=== PATIENT | male | born 1945 | race Caucasian/White ===

== ENCOUNTER → 2023-10-25 16:15 | Outpatient (CLI) | payer OTHER, SELFPAY ==
--- NOTE | ~2023-10-25 | XR_ITS ---
EXAMINATION: XR shoulder LT min 2V DATE: 10/25/2023 16:49 INDICATION: Left shoulder pain. TECHNIQUE: 4 views of left shoulder were obtained. COMPARISON: None. FINDINGS: Bone alignment is normal. No fracture. There is severe osteoarthritis of glenohumeral joint and acromioclavicular joint. There is a large hiatal hernia. IMPRESSION: 1. Polyarticular osteoarthritis. Reviewed, dictated and finalized at location E. PAINTER
--- NOTE | ~2023-10-25 | XR_ITS ---
EXAMINATION: XR cervical spine 4-5V DATE: 10/25/2023 16:49 INDICATION: Neck pain. TECHNIQUE: 4 views of cervical spine were obtained. COMPARISON: None. FINDINGS: Bone alignment is normal. Vertebral body heights are normal. There is severely decreased di sc height from C4-C5 through C6-C7. There is multilevel uncovertebral joint osteoarthritis, severe bi laterally at C5-C6 and C6-C7 and on the right at C4-C5. There is multilevel facet joint osteoarthriti s, severe on the left at C3-C4. There is mild central canal stenosis at C4-C5 and C6-C7. No preverteb ral soft tissue swelling. IMPRESSION: 1. Severe cervical spondylosis. Reviewed, dictated and finalized at location E. TIONAL TECHNICAL EDUCATION DIRECTOR
--- NOTE | ~2023-10-25 | XR_ITS ---
EXAMINATION: XR lumbar spine 6V w bending DATE: 10/25/2023 16:48 INDICATION: Dorsalgia, unspecified. TECHNIQUE: 7 views of lumbar spine including standing and flexion and extension views were obtained. COMPARISON: None. FINDINGS: There is 18 degrees dextroscoliosis of lumbar spine. There is 5 mm retrolisthesis of L2 on L3 and L3 on L4. The spine is hypomobile with flexion and extension. Vertebral body heights are fawn l. There is mildly decreased disc height at L1-L2, severely decreased disc height at L2-L3, L3-L4, an d L4-L5, and moderately decreased disc height at L5-S1. There is multilevel facet joint osteoarthriti s, severe in lower lumbar spine. There is a right hip arthroplasty. IMPRESSION: 1. Severe lumbar spondylosis. 2. Lumbar dextroscoliosis. Reviewed, dictated and finalized at location E. HOUSE COORDINATOR
--- NOTE | ~2023-10-25 | XR_ITS ---
EXAMINATION: XR shoulder RT min 2V DATE: 10/25/2023 16:49 INDICATION: Right shoulder pain. TECHNIQUE: 4 views of right shoulder were obtained. COMPARISON: None. FINDINGS: Bone alignment is normal. No fracture. There is severe osteoarthritis of glenohumeral joint and acromioclavicular joint. IMPRESSION: 1. Polyarticular osteoarthritis. Reviewed, dictated and finalized at location E. OENGRAVING ETCHER
== END ==
PROVIDERS: PCP Anesthesiology Pain Medicine; Visit Provider Anesthesiology Pain Medicine
DX: M47.896 Other spondylosis, lumbar region (principal); M47.892 Other spondylosis, cervical region; M19.011 Primary osteoarthritis, right shoulder; M19.012 Primary osteoarthritis, left shoulder
CPT/HCPCS: 72050; 72114; 73030

== ENCOUNTER 2024-01-25 08:07 | Outpatient (CLI) | payer OTHER, SELFPAY ==
--- NOTE | ~2024-01-25 | MR_ITS ---
EXAMINATION: MR lumbar spine wo con DATE: 01/25/2024 08:47 INDICATION: Spinal stenosis, lumbar region with neurogenic claudication. Low back pain. Bilateral leg pain. TECHNIQUE: Magnetic resonance imaging (MRI) of the lumbar spine was performed without intravenous con trast. Sequences included sagittal T2-weighted FSE, sagittal T2-weighted FS FSE, sagittal T1-weighted FSE, and axial T2-weighted FSE. COMPARISON: Lumbar spine radiograph 10/25/2023 FINDINGS: There is 12 degrees dextroscoliosis of lumbar spine. There is 4 mm retrolisthesis of L1 on L2 and L2 on L3 and 5 mm anterolisthesis of L3 on L4 and L5 on S1. There is mild chronic anterior wed ging of T12 and L1 vertebral bodies. There is severely decreased disc height from L1-L2 through L5-S1 with endplate remodeling. The distal spinal cord signal intensity is normal. The conus medullaris is at T12. The following disc levels are specifically discussed: L1-L2: The disc is bulging. There is severe bilateral facet joint osteoarthritis. There is mild bilat eral neural foraminal stenosis. There is mild central canal stenosis. L2-L3: The disc is bulging and has an annular fissure. There is severe right and mild left facet join t osteoarthritis. There is mild right and moderate left neural foraminal stenosis. There is mild cent ral canal stenosis. L3-L4: The disc is bulging. There is severe right and moderate left facet joint osteoarthritis. There is moderate bilateral neural foraminal stenosis. There is mild central canal stenosis. There is mode rate stenosis of right lateral recess. L4-L5: The disc is bulging and has an annular fissure. There is severe right and moderate left facet joint osteoarthritis. There is moderate right and mild left neural foraminal stenosis. There is mild central canal stenosis. L5-S1: The disc is bulging and has an annular fissure. There is severe right and moderate left facet joint osteoarthritis. There is moderate bilateral neural foraminal stenosis. There is mild central ca nal stenosis. IMPRESSION: 1. Severe lumbar spondylosis. 2. Lumbar dextroscoliosis. Reviewed, dictated and finalized at location E. PS ARCHITECT
== END 2024-01-25 08:08 ==
LOC: GOSHIMG 08:07
PROVIDERS: PCP Anesthesiology Pain Medicine; Visit Provider Anesthesiology Pain Medicine
DX: M48.062 Spinal stenosis, lumbar region with neurogenic claudication (principal); M47.896 Other spondylosis, lumbar region
CPT/HCPCS: 72148

== ENCOUNTER 2025-09-17 08:42 | Day surgery (SDC) | payer MEDICARE, SELFPAY ==
[2025-08-30 08:31] VITALS: BMI 30.7
--- NOTE | ~2025-09-17 | XR_ITS ---
EXAMINATION: XR fluoroscopy no charge DATE: 09/17/2025 11:34 INDICATION: Nerve block at the right shoulder TECHNIQUE: 7 fluoroscopic images of the right shoulder were obtained during procedure performed by Dr. Vallejo. Radiologist was not present for the imaging or procedure. The amount of fluoroscopy time used during this procedure was 1.4 minutes. 2 mm radiation dose of 6.69 mGy. COMPARISON: None FINDINGS: Images demonstrate spinal needles advanced to the anterior margin of the rim of the mid and cephalad aspect of the right glenoid, along the lateral margin of the neck of the coracoid process and along the lateral metaphyseal region of the greater tuberosity right humerus inferior to the rotator cuff footplate. Osteoarthritis at the glenohumeral joint with cephalad predominant nonuniform joint space narrowing and moderate size marginal ossified above the humeral head. Additional moderate osteoarthritis at the right acromioclavicular joint. IMPRESSION: 1. Fluoroscopy utilized during pain management procedure at the right shoulder. See procedure note for further detail. Reviewed, dictated and finalized at location A.
--- OUTSIDE RECORDS SUMMARY | 2025-09-17 09:42 | XMS_ITS ---
Author Organization [facility] [address] [facility] Address [address] [place] [facility] [address] Care Team Providers Care Hooker Laster Name Role Phone Andrea Mcelroy MD Primary Care Provider [phone] Rory Mehta MD PhD Unavailable [phone] Ryan Lawler MD Unavailable [phone] Active Problems Patient Care Coordination No te Formatting of this note migh t be different from the original. - Discontinue meloxicam. - Use ibuprofen once daily as needed for joint pains. - Schedule CT of the abdomen and pelvis to complete evaluation of anemia. - Start Nexium 40 mg daily. - Continue follow up with primary care physician office regarding blood testing and need for iron infusions. - Follow up in our GI office in 6 months Problem Noted Date Diagnosed Date Chronic pain of both shoulders 07/04/2025 Assessment & Plan (07/04/2025 9:25 AM CDT): Continue sulfasalazine. Can take p.r.n. Tylenol. Avoid NSAIDs due to hiatal hernia and iron-deficiency anemia. Bilateral impacted cerumen 07/04/2025 Assessment & Plan (07/04/2025 9:25 AM CDT): Canals cleared. RTC for any recurrent concerns. Hiatal hernia 06/24/2025 Assessment & Plan (07/04/2025 9:22 AM CDT): Discussed can be associated with iron-deficiency. Recommend continuing PPI. Avoid meloxicam. Assessment & Plan (06/24/2025 12:07 PM CDT): Large hiatal hernia noted on recent endoscopy in 2022. This can definitely contribute to iron-deficiency anemia because of the strong association. To minimize risk of occult blood loss I asked the patient to stop meloxicam and use ibuprofen once or twice per week as needed. Start Protonix daily. Schedule CT abdomen pelvis without contrast to complete evaluation. Hypertension, essential 04/03/2025 Assessment & Plan (04/03/2025 8:31 AM CDT): Well controlled on current regimen. No changes. Iron deficiency anemia, unspecified 04/03/2025 Assessment & Plan (07/04/2025 9:23 AM CDT): Symptomatically improved after iron infusions. Will recheck iron level and plan accordingly. Medicare annual wellness visit, subsequent 10/04 Assessment & Plan (10/04/2024 8:04 AM LIVE TRUCK OPERATOR): Visit preventive in nature. We reviewed medications, chronic conditions, risk factors, lifestyle recommendations. Reviewed immunization recommendations. Follow-up in 6 months for chronic conditions and 1 year for annual wellness. Prostate cancer 10/04/2024 Assessment & Plan (04/03/2025 8:30 AM CDT): Monitoring with Oncology. Will continue to follow. Assessment & Plan (10/04/2024 7:56 AM LIVE TRUCK OPERATOR): No signs of recurrent disease. He is following twice yearly with Oncology. Anemia 10/04/2024 Assessment & Plan (06/24/2025 12:07 PM CDT): Iron-deficiency anemia noted on blood testing. He received intravenous iron infusion. There was strong association between hiatal hernia and iron-deficiency anemia. No sign of overt or occult GI bleeding. His EGD and colonoscopies from were noted. I do not see a need to pursue endoscopy at this time. Assessment & Plan (04/03/2025 8:30 AM CDT): Chronic anemia with low iron levels. Intolerant to oral iron due to gastrointestinal side effects. No gastrointestinal bleeding. Fatigue likely related to anemia. Possibly due to radiation therapy. Recommend eval with GI as well. - Arrange iron infusions at [facility]. - Refer to sales operations manager for further evaluation. Assessment & Plan (10/04/2024 8:24 AM LIVE TRUCK OPERATOR): Mild. Denies any bleeding. Will check urinalysis, iron profile and ferritin. C scope is up-to-date. Red flags reviewed. Oropharyngeal dysphagia 03/23/2023 History of colonic polyps 03/23/2023 Assessment & Plan (10/04/2024 8:05 AM LIVE TRUCK OPERATOR): C-scope utd. Family history of colon cancer 03/23/2023 Malignant neoplasm of prostate 10/01/2022 Cancer Staging:Clinical stage from 10/01/2022:Stage IIC(cT1c, cN0, cM0, PSA: 7.8, Grade Group: 3) - Signed by Rory Mehta MD PhD on 10/01/2022 Elevated PSA 07/21/2022 Overview (07/21/2022): Added automatically from request for surgery [id number] Primary osteoarthritis involving multiple joints 12/18/2019 Assessment & Plan (04/03/2025 8:31 AM CDT): Chronic arthritis with significant symptoms. Managed with meloxicam. Concerns about side effects. Symptoms may improve with anemia correction. - Continue meloxicam. - Reassess symptoms post iron correction. Assessment & Plan (12/18/2019 10:11 AM LIVE TRUCK OPERATOR): Advised hydrocodone will be discontinue. Should not be used as a chronic p.r.n. medication. He is in agreement follow-up with pain management if needed. Mixed hyperlipidemia 12/18/2019 Assessment & Plan (07/04/2025 9:23 AM CDT): Compliant with simvastatin. Will check lipid panel with next set of labs. Assessment & Plan (10/04/2024 8:03 AM LIVE TRUCK OPERATOR): Stable. Tolerating simvastatin wo SE. Will continue to monitor. Hypothyroidism due to acquired atrophy of thyroi d 12/18/2019 Assessment & Plan (07/04/2025 9:24 AM CDT): Clinically euthyroid. Has been stable on current dose of levothyroxine. Will check TSH with next set of labs. Assessment & Plan (04/03/2025 8:32 AM CDT): Will check TSH with next set of labs. 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 Continue losartan, hydrochlorothiazide, metoprolol. Reviewed lifestyle recommendations. Will continue to monitor. Pure hypercholesterolemia 09/24/2010 Hypothyroidism 09/24/2010 Assessment & Plan (10/04/2024 8:04 AM LIVE TRUCK OPERATOR): Fatigue. S/p CA tx. Will check TSH. Current Treatment and Therapy Plans No current plan information found. Other Current Plans iron sucrose (Venofer) Infusion* Plan Start Date:04/12/2025 Plan Provider:Andrea Mcelroy MD Linked Problems Other iron deficiency anemia Anemia, unspecified type Treatment Medications No medications scheduled. Past Treatment and Therapy Plans Specialty Infusion Treatment Plan Name Start Date Discontinue Date Treatment Medications Discontinue Reason Plan Provider Eligard Injection - 45 mg every 24 weeks 12/02/2023 06/06/2024 leuprolide (ELIGARD) Therapy Complete Rory Mehta MD PhD Eligard Injection - 45 mg every 24 weeks 05/27/2023 05/27/2023 leuprolide (ELIGARD) Therapy Complete Rory Mehta MD PhD Eligard Injection - 45 mg every 24 weeks 10/22/2022 05/18/2023 leuprolide (ELIGARD) Therapy Complete Rory Mehta MD PhD Radiation Treatments (No Episode) * Course C1_Prostate_202112/02/2022 - 02/01/2023 Treatment Period Energy Fraction Dose Fractions Total Dose Plans Planned Replan Boost 01/06/2023 - 02/01/2023 180 19 / 3,420 Replan Pelvis 12/16/2022 - 01/05/2023 180 15 / 2,700 Pelvis 12/02/2022 - 12/15/2022 180 10 / 4,500 Reference Points Delivered DPV_Prost_Boost 01/06/2023 - 02/01/2023 3,420 DPV_Pelvis 12/02/2022 - 01/05/2023 4,500 Lifetime Dose Tracking * Chemical Lifetime Dose Automatic Entry Manual Entr y Fluoro Time 0.183 minutes 0.183 minutes 0 minutes Air kerma at the reference point (Ka,r) 1.94 mGy 1 .94 mGy 0 mGy
--- OUTSIDE RECORDS SUMMARY | 2025-09-17 09:42 | XMS_ITS | Clinical Summary ---
Author Organization [facility] Address [address] [place] [address] Care Team Providers Care Lens Cutter Name Role Phone Félix Arcos MD Primary Care Provider Source Comments [facility],non-owned Affiliates and Associated Physician Practices is amultiple site organization consisting of ambulatory clinics and hospital sitesin [place], [place], [place] and [place]. This disclosure is being madepursuant to the Care Everywhere program and may not contain all information available regarding this patient. Last updated 18.[facility] Allergies No known active allergies Medications * Be aware that medications may not be up to date on this document. Alwaysverify current medications with the patient. simvastatin (ZOCOR) 40 MG tablet Take 40 mg by mouth at bedtime. Active lisinopril-hydr ochlorothiazide (PRINZIDE; ZESTORETIC) 20-12.5 MG tablet Take 1 Tab by mouth daily. Active diclofenac sodium (VOLTAREN) 1 % gel Apply to affected area 4 times daily. Active levothyroxine (SYNTHROID) 150 MCG tablet Take 150 mcg by mouth daily before breakfast. Active predniSONE (DELTASONE) 5 MG tablet Take 1 Tab by mouth daily. 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 Gender Identity Not on file Sexual Orientation Not on file Last Filed Vital Signs Vital Sign Reading Time Taken Comments Blood Pressure 122/84 09/24/2010 1:37 PM CDT Pulse 72 09/24/2010 1:37 PM CDT Temperature 36.7 C (98 F) 09/24/2010 1:37 PM CDT Respiratory Rate - - Oxygen Saturation - - Inhaled Oxygen Concentration - - Weight 89.7 kg (197 lb 12.8 oz) 09/24/2010 1:37 PM CDT Height 172.7 cm (5' 8) 09/24/2010 1:37 PM CDT Body Mass Index 30.08 09/24/2010 1:37 PM CDT Plan of Treatment Health Maintenance Due Date Last Done Comments DTAP/TDAP/TD VACCINES (1 - Tdap) 1963 PNEUMOCOCCAL VACCINE 50+ (1 of 1 - PCV) 1994 ZOSTER VACCINE (1 of 2) 1994 Respiratory Syncytial Virus (RSV) Vaccine Pt: or over 60 yrs (1 - 1-dose 75+ series) 2019 DEPRESSION SCREENING 11/22/2024 COVID-19 VACCINE ( - 2023-2 5 season) 2025 INFLUENZA VACCINE (#1) 2025 HEPATITIS B VACCINE Aged Out No longe r eligible based on patient's age to complete this topic HIB VACCINE Aged Out No longer eligi ble based on patient's age to complete this topic HPV VACCINE Aged Out No longer eligi ble based on patient's age to complete this topic MENINGOCOCCAL (Group B) VACC INE SHARED DECISION-MAKING Aged Out No longer eligibl e based on patient's age to complete this topic MENINGOCOCCAL GROUPS A/C/Y/W VACCINE Aged Out No longer eligible b ased on patient's age to complete this topic Care Teams Lens Cutter Relationship Specialty Start Date End Date Félix Arcos MD [address] [address] PCP - General 09/24/10
--- OUTSIDE RECORDS SUMMARY | 2025-09-17 09:42 | XMS_ITS | Clinical Summary ---
Author Organization [facility] Address [address] [place] [address] Care Team Providers Care Broaching Machine Set Up Operator Name Role Phone Andrea Mcelroy MD Primary Care Provider [phone] Rory Mehta MD PhD Unavailable [phone] Ryan Lawler MD Unavailable [phone] Allergies No known active allergies Medications latanoprost (XALATAN) 0.005 % ophthalmic solutionIndicatio ns:open angle glaucoma Administer 1 drop into the left eye 2 (two) times a day Active ergocalciferol, vitamin D2, (VITAMIN D2 ORAL) Take 1 tablet by mouth every morning Active dorzolamide-timol oL (COSOPT) 22.3-6.8 mg/mL ophthalmic solution Administer 1 drop into the left eye every morning 11/04/20 20 Active hydroCHLOROthiazi de (HYDRODIURIL) 25 mg tabletIndications :Benign hypertension with chronic kidney disease, stage II Take 1 tablet (25 mg total) by mouth daily 90 tablet 3 09/11/20 24 Active simvastatin (ZOCOR) 40 mg tabletIndications :Mixed hyperlipidemia Take 1 tablet (40 mg total) by mouth nightly 90 tablet 3 09/11/20 24 Active losartan (COZAAR) 50 mg tabletIndications :Hypertension, essential TAKE 1 TABLET BY MOUTH EVERY DAY 90 tablet 2 04/12/20 25 Active levothyroxine (SYNTHROID) 112 mcg tabletIndications :Hypothyroidism due to acquired atrophy of thyroid TAKE 1 TABLET BY MOUTH EVERY DAY 100 tablet 1 07/19/[address] (NexIUM) 20 mg capsule Take 2 capsules (40 mg total) by mouth daily before breakfast 180 capsule 3 06/21/20 25 2025 Active sulfaSALAzine (AZULFIDINE) 500 mg tablet Take 1 tablet (500 mg total) by mouth 2 (two) times a day 60 tablet 2 06/26/20 25 Active HYDROcodone-aceta minophen (NORCO) 5-325 mg per tabletIndications :Pain Take 1 tablet by mouth every 6 (six) hours as needed for pain 28 tablet 08/01/20 25 Active metoprolol tartrate (LOPRESSOR) 25 mg immediate release tabletIndications :Benign hypertension with chronic kidney disease, stage II TAKE 1 TABLET (25 MG TOTAL) BY MOUTH DAILY. 90 tablet 3 08/30/20 25 Active sulfaSALAzine EN (AZULFIDINE EN) 500 mg EC tablet Take 1 tablet (500 mg total) by mouth 4 (four) times a day 120 tablet 11 09/11/20 25 2025 Active metoprolol tartrate (LOPRESSOR) 25 mg immediate release tabletIndications :Benign hypertension with chronic kidney disease, stage II TAKE 1 TABLET (25 MG TOTAL) BY MOUTH DAILY. 90 tablet 3 09/14/20 24 2024 Discontinued ibuprofen (ADVIL,MOTRIN) 200 mg tab/cap Take 1 tablet/capsul e (200 mg total) by mouth daily as needed for pain 60 tablet 3 06/21/20 25 2024 sulfaSALAzine EN (AZULFIDINE EN) 500 mg EC tablet Take 1 tablet (500 mg total) by mouth 4 (four) times a day 120 tablet 11 06/27/20 25 2024 Discontinued Active Problems Patient Care Coordination No te [...] 10/04 Assessment & Plan (10/04/2024 8:04 AM CELEBRITY MANAGER): Visit preventive in nature. We reviewed medications, chronic conditions, risk factors, lifestyle recommendations. Reviewed immunization recommendations. Follow-up in 6 months for chronic conditions and 1 year for annual wellness. Prostate cancer 10/04/2024 Assessment & Plan (04/03/2025 8:30 AM CDT): Monitoring with Oncology. Will continue to follow. Assessment & Plan (10/04/2024 7:56 AM CELEBRITY MANAGER): No signs of recurrent disease. He is following twice yearly with Oncology. Anemia 10/04/2024 Assessment & Plan (06/24/2025 12:07 PM CDT): Iron-deficiency anemia noted on blood testing. He received intravenous iron infusion. There was strong association between hiatal hernia and iron-deficiency anemia. No sign of overt or occult GI bleeding. His EGD and colonoscopies from 23 were noted. I do not see a need to pursue endoscopy at this time. Assessment & Plan (04/03/2025 8:30 AM CDT): Chronic anemia with low iron levels. Intolerant to oral iron due to gastrointestinal side effects. No gastrointestinal bleeding. Fatigue likely related to anemia. Possibly due to radiation therapy. Recommend eval with GI as well. - Arrange iron infusions at [facility]. - Refer to tumbling and rolling supervisor for further evaluation. Assessment & Plan (10/04/2024 8:24 AM CELEBRITY MANAGER): Mild. Denies any bleeding. Will check urinalysis, iron profile and ferritin. C scope is up-to-date. Red flags reviewed. Oropharyngeal dysphagia 03/23/2023 History of colonic polyps 03/23/2023 Assessment & Plan (10/04/2024 8:05 AM CELEBRITY MANAGER): C-scope utd. Family history of colon cancer 03/23/2023 Malignant neoplasm of prostate 10/01/2022 Cancer Staging:Clinical stage from 10/01/2022:Stage IIC(cT1c, cN0, cM0, PSA: 7.8, Grade Group: 3) - Signed by Rory Mehta MD PhD on 10/01/2022 Elevated PSA 07/21/2022 Overview (07/21/2022): Added automatically from request for surgery [id number] Primary osteoarthritis involving multiple joints 12/18/2019 Assessment & Plan (04/03/2025 8:31 AM CDT): Chronic arthritis with significant symptoms. Managed with meloxicam. Concerns about side effects. Symptoms may improve with anemia correction. - Continue meloxicam. - Reassess symptoms post iron correction. Assessment & Plan (12/18/2019 10:11 AM CELEBRITY MANAGER): Advised hydrocodone will be discontinue. Should not be used as a chronic p.r.n. medication. He is in agreement follow-up with pain management if needed. Mixed hyperlipidemia 12/18/2019 Assessment & Plan (07/04/2025 9:23 AM CDT): Compliant with simvastatin. Will check lipid panel with next set of labs. Assessment & Plan (10/04/2024 8:03 AM CELEBRITY MANAGER): Stable. Tolerating simvastatin wo SE. Will continue [...] (09/30/2023): Assessment & Plan (10/04/2024 8:24 AM CELEBRITY MANAGER): Normotensive. Continue losartan, hydrochlorothiazide, metoprolol. Reviewed lifestyle recommendations. Will continue to monitor. Pure hypercholesterolemia 09/24/2010 Hypothyroidism 09/24/2010 Assessment & Plan (10/04/2024 8:04 AM CELEBRITY MANAGER): Fatigue. S/p CA tx. Will check TSH. Encounters Date Type Department Care Team Description 08/14/2025 3:15 PM CDT - 08/14/2025 11:59 PM CDT Hospital Encounter [facility] [address] [place] [address] Anemia, unspecified type Discharge Disposition: Discharge to home or self care 08/13/2025 Telephone [facility] [address] [place] [address] Nalepa, Christine D. 07/09/2025 Telephone [facility] [address] [phone] Andrea Mcelroy MD 07/04/2025 8:30 AM CDT Office Visit [facility] [address] [phone] Nguyen Doran NP Hiatal hernia (Primary Dx); Other iron deficiency anemia; Mixed hyperlipidemia; Hypothyroidism due to acquired atrophy of thyroid; Chronic pain of both shoulders; Class 1 obesity due to excess calories with serious comorbidity and body mass index (BMI) of 30.0 to 30.9 in adult; Bilateral impacted cerumen 06/28/2025 1:30 PM CDT Office Visit [facility] [address] [place] [id number] Felicity Wells NP Prostate cancer (HCC) 06/26/2025 Orders Only [facility] [address] [phone] Andrea Mcelroy MD 06/26/2025 Telephone [facility] [address] [phone] Andrea Mcelroy MD 06/21/2025 9:15 AM CDT Office Visit [facility] [place] [address] [place] [id number] Joy Gil MD Hiatal hernia (Primary Dx); Anemia, unspecified type from Last 3 Months Immunizations Immunization Administration Dates Next Due Influenza, Quad, Adjuvantate d, Intramuscular 09/16/2023 Influenza, Quadrivalent, Hig h Dose, Preservative Free, Intrr 09/21/2022,08/15/2021,09/10/2020 Influenza, Quadrivalent, Spl it, Intramuscular 09/11/2019 Influenza, Trivalent, Adjuva nted, Intramuscular 10/11/2018 Influenza, Trivalent, High D ose, Split, Preservative Free, Intramuscular 10/04/2024,09/20/2017 Influenza, Trivalent, Preser vative Free, Intramuscular 09/17/2016 Influenza, Unspecified 09/17/2021(Deferr ed: Patient Refused - pt states already had one),08/22/2021 Pfizer SARS-CoV-2 Monovalent Vaccination (12+ Yrs) PURPLE 01/31/2021,01/10/2021 Pneumococcal Conjugate PCV 13 09/17/2016, 011 Pneumococcal Polysaccharide PPV23 09/20/2017 Tdap 04/01/2011 ZOSTER Recombinant 09/16/2023,05/19/2023 Surgical History Surgery Date Site/Laterality Comments HIP SURGERY 11/22/2013 - 11/21/2014 Right right hip replacement COLONOSCOPY Multiple-- Last 2018 WISDOM TOOTH EXTRACTION 11/22/1961 - 11/21/1962 REPLACEMENT TOTAL KNEE 11/22/2011 - 11/21/2012 Right CATARACT EXTRACTION 11/22/2020 - 11/21/2021 Bilateral FINGER AMPUTATION 11/22/1951 - 11/21/1952 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 FOOT FRACTURE SURGERY 11/22/2006 - 11/21/2007 Left FOOT HARDWARE REMOVAL 11/22/2006 - 11/21/2007 Left FLUORO GUIDED ASPIRATION OR INJECTION LARGE JOINT BILATERAL 12/05/2024 Bilateral Medical History Medical History Date Comments Obesity Hypothyroidism Hypertension Dxd ~1979 Hyperlipidemia Treated with sta tin Prostate cancer (HCC) Arthritis Family History Medical History Relation Name Comments Heart disease Brother taylor reyes Colon cancer Father Anesthesia problems Neg Hx Relation Name Status Comments Brother taylor reyes Father Mother Social History Tobacco Use Types Packs/Day Years Used Date Smoking Tobacco: Former Cigarettes 0 11/22/1961 - 1980 Smokeless Tobacco: Never Tobacco Cessation:Counseling Given: Not Answered Comments:quit in 1980 AUDIT-C Answer Date Recorded Q1: How often do you have a drink containing alc ohol? 2-4 times a month 03/23/2023 Q2: How many drinks containi ng alcohol do you have on a typical day when you are drinking? 1 or 2 03/23/2023 Q3: How often do you have si x or more drinks on one occasion? Never 03/23/2023 PHQ-2 Answer Date Recorded PHQ-2 Total Score (If total score is 3 or more points, staff should administer the PHQ-9) 0 04/03/2025 Personal Safety Answer Date Recorded Have you ever been in or are you currently in a harmful physical or emotional relationship or is someone making you feel afraid or unsafe? Denies 04/01/2023 Sex and Gender Information Value Date Recorded Sex Assigned at Not on file Legal Sex Male 9:39 AM CELEBRITY MANAGER Gender Identity Not on file Sexual Orientation Not on file Obstetrics History Last Filed Vital Signs Vital Sign Reading Time Taken Comments Blood Pressure 140/84 07/04/2025 8:16 AM CDT Pulse 51 07/04/2025 8:16 AM CDT Temperature 36.1 C (96.9 F) 07/04/2025 8:16 AM CDT Respiratory Rate 20 07/04/2025 8:16 AM CDT Oxygen Saturation 97% 07/04/2025 8:16 AM CDT Inhaled Oxygen Concentration - - Weight 91.7 kg (202 lb 3.2 oz) 07/04/2025 8:16 A M CDT Height 172.7 cm (5' 7.99) 07/04/2025 8:16 AM CD T Body Mass Index 30.75 07/04/2025 8:16 AM CDT Plan of Treatment Health Maintenance Due Date Last Done Comments Hepatitis B Screening 1963 DTaP/Tdap/Td Vaccine (2 - Td or Tdap) 04/01/2021 04/01/2011 Covid-19 Vaccine (4 - 2024-2 6 season) 2025 08/15/2021, 01/31/2021, 01/10/2021 Influenza Vaccine (#1) 2025 , 09/16/2023, 09/21/2022, Additional history exists Well Visit 65+ 10/04/2025 10/04/2024, 05/2023, 09/21/2022, Additional history exists Depression Screening 04/03/2026 04/03/2025, 10/04/2024, 2024, Additional history exists Fall Risk Assessment 07/04/2026 07/04/2025, 10/04/2024, 2024, Additional history exists Pneumococcal vaccine 65+ Completed 017, 09/17/2016, 04/01/2011 Zoster Vaccine Completed 09/16/2023, 05/19/2023 Abdominal Aortic Aneurysm (A AA) Screen Completed 08/14/2025 Procedures Procedure Name Priority Date/Time Associated Diagnosis Comments CT ABDOMEN PELVIS WO CONTRAST Schedule Routine, Read Routine (OP Routine) 08/14/2025 4:20 PM CDT Anemia, unspecified type DE REMOVAL IMPACTED CERUMEN INSTRUMENTATION UNILAT Routine 07/04/2025 8:30 AM CDT Bilateral impacted cerumen from Last 3 Months Results * CT Abdomen Pelvis WO Contrast (08/14/2025 4:20 PM CDT) Anatomical Region Laterality Modality Body N/A Computed Tomogra phy 08/15/2025 8:51 AM CDT Narrative 08/15/2025 8:53 AM CDT EXAM DESCRIPTION: CT ABDOMEN PELVIS WO CONTRAST REASON FOR STUDY: iron defieicncy anemia Fatigue Anemia Get blood draw every 6 months Hx of prostate cancer 3 years ago and radiation treatments No surgeries TECHNIQUE: CT scan of the abdomen and pelvis performed without intravenous and without oral contrast using helical scanning technique. Reconstructed coronal and sagittal MPR images reviewed. All images stored on PACS. Automated exposure control was used as a dose optimization technique for this examination. COMPARISON: None FINDINGS: The sensitivity for detection of visceral lesions is diminished without the use of intravenous contrast. LOWER CHEST: Large hiatal hernia. Coronary artery calcifications. LIVER: Normal length. GALLBLADDER: No radiodense gallstones. SPLEEN: Normal length. PANCREAS: No peripancreatic inflammation or fluid collection. ADRENALS: No adrenal mass. KIDNEYS/URINARY TRACT: No hydronephrosis. No urolithiasis. GI: No bowel obstruction. Normal appendix. Colonic diverticula without acute diverticulitis. PERITONEUM: No ascites or free air. VASCULATURE: Vascular calcifications. No abdominal aortic aneurysm. MUSCULOSKELETAL: Right hip arthroplasty hardware. Multilevel lumbar spondylosis. Mild left hip osteoarthritis and chondrocalcinosis. OTHER: Fat containing paraumbilical hernia. IMPRESSION: 1. No acute findings. 2. Large hiatal hernia. 3. Colonic diverticulosis. 4. Additional findings as above. THIS IS AN ELECTRONICALLY VERIFIED FINAL REPORT 08/15/2025 8:53 AM - Electronically signed by Jt Peters M.D., JR: Report ID: [id number] Reading Location: [id number] Procedure Note Jt Peters MD - 08/15/2025 EXAM DESCRIPTION: CT ABDOMEN PELVIS WO CONTRAST REASON FOR STUDY: iron defieicncy anemia Fatigue Anemia Get blood draw every 6 months Hx of prostate cancer 3years ago and radiation treatments No surgeries TECHNIQUE: CT scan of the abdomen and pelvis performed without intravenousand without oral contrast using helical scanning technique. Reconstructed coronal and sagittal MPR images reviewed. All images stored on PACS. Automated exposure control was used as a dose optimization technique forthis examination. COMPARISON: None FINDINGS: The sensitivity for detection of visceral lesions is diminished withoutthe use of intravenous contrast. LOWER CHEST: Large hiatal hernia. Coronary artery calcifications. LIVER: Normal length. GALLBLADDER: No radiodense gallstones. SPLEEN: Normal length. PANCREAS: No peripancreatic inflammation or fluid collection. ADRENALS: No adrenal mass. KIDNEYS/URINARY TRACT: No hydronephrosis. No urolithiasis. GI: No bowel obstruction. Normal appendix. Colonic diverticulawithout acute diverticulitis. PERITONEUM: No ascites or free air. VASCULATURE: Vascular calcifications. No abdominal aortic aneurysm. MUSCULOSKELETAL: Right hip arthroplasty hardware. Multilevel lumbar spondylosis. Mild left hip osteoarthritis and chondrocalcinosis. OTHER: Fat containing paraumbilical hernia. IMPRESSION: 1. No acute findings. 2. Large hiatal hernia. 3. Colonic diverticulosis. 4. Additional findings as above. THIS IS AN ELECTRONICALLY VERIFIED FINAL REPORT 08/15/2025 8:53 AM - Electronically signed by Jt Peters M.D. JR: Report ID: [id number] Reading Location: [id number] us Joy Gil MD IMG CT PROCEDURES Final Re sult * DE REMOVAL IMPACTED CERUMEN INSTRUMENTATION UNILAT (07/04/2025 8:30 AM CDT) Narrative Andrea Mcelroy MD - 07/04/2025 8:30 AM CDT Andrea Mcelroy MD 07/20/2025 7:48 AM Ear Cerumen Removal Performed by: Nguyen Doran NP Authorized by: Nguyen Doran NP Consent Given by: Patient Verbal consent obtained: Yes Location: Bilateral L ear cerumen impacted?: Yes L ear method of removal: Instrumentation and irrigation L ear instrumentation: Curette L ear magnification: Otoscope R ear cerumen impacted?: Yes R ear method of removal: Instrumentation and irrigation R ear instrumentation: Curette R ear magnification: Otoscope Inspection: TM intact Patient tolerance: Patient tolerated the procedure well with no immediate complications us Nguyen Doran QUALITY IMPROVEMENT MANAGER IN CLINIC/BEDSIDE ORDERABL ES Final Result from Last 3 Months Insurance [facility] MEDICARE [facility] Address: [facility] [address] [place] [address] [facility] MEDICARE [facility] Address: [facility] [address] [place] [address] Advance Directives For more information, please contact: [phone] * Full Code (Latest Code Status on File) Date Activated Date Inactivated Comments 04/01/2023 7:33 AM 04/01/2023 1:46 PM * Full Code Date Activated Date Inactivated Comments 04/01/2023 7:33 AM 04/01/2023 7:33 AM Care Teams Broaching Machine Set Up Operator Relationship Specialty Start Date End Date Andrea Mcelroy MD [address] [place] [id number] PCP - General Family Medicine 10/24/19 Rory Mehta MD PhD [address] [place] [address] Radiation Oncologist Radiation Oncology 10/01/22 Ryan Lawler MD [address] [place] [address] Referring Physician Urology 10/01/22
[2025-09-17 09:43] VITALS: BP 170/96; PULSE 58; RESP 18; TEMP 36.7; O2SAT 98
--- NOTE | 2025-09-17 10:20 | WPDHPUPDATE1 ---
History and Physical Update Update Date/Time: 09/17/25 10:20 History and Physical has been reviewed, including an updated exam of the patient. There are NO changes in the patient's condition. Risks, benefits, and alternatives have been discussed and questions answered. Patient agrees to proceed with procedure.
--- NOTE | 2025-09-17 10:21 | P.OP_ITS ---
Procedure Note - Detailed Date of Procedure 09/17/25 Pre-op Diagnosis Primary Osteoarthritis RT Shoulder, chronic right shoulder pain Post-op Diagnosis Same Procedure Performed Diagnostic and Prognostic Blockade of the right Suprascapular, Axillary, Lateral Pectoral and Superior Subscapularis Peripheral Sensory Nerves under Fluoroscopic Guidance (4 nerves blocked). Surgeon Olivier Vallejo MD Anesthesia Local Description of Procedure INFORMED CONSENT: Risks, benefits and alternatives to the procedure were discussed in detail with the patient who expressed explicit understanding and consent to proceed. Patient was informed verbally and in written form regarding the risks associated with the procedure including the low risk of serious local or systemic infection with need for additional surgical intervention, bleeding/bruising, allergic reaction, side-effects or toxicity from injectable medications, nerve injury, paralysis/weakness, procedural site pain or discomfort, worsening pain and/or mobility, failure to treat pain, disfigurement, seizure, arrhythmia, coma and/or . The patient expressed explicit understanding and consent to proceed. All materials required for the procedure were available prior to procedure start. Site and side were marked prior to procedure and verbally confirmed with the patient. PROCEDURE IN DETAIL: The patient was brought to the procedural suite and placed in the prone position with the arm in the neutral, adducted position. Patient was made comfortable with use of pillows under the head, chest, hips and ankles. Skin overlying the posterior, medial and lateral surface of the shoulder joint on the right side was prepared broadly with ChloraPrep applicator and draped in a sterile manner. Aseptic technique was utilized throughout. The shoulder joint of interest was visualized in the AP view with slight caudal tilt and ipsilateral oblique angulation to optimize view of the glenohumeral joint. Local anesthesia was established by infiltration with approximately 3 mL of 2% lidocaine via a 1-1/2 inch 27-gauge needle at the skin and soft tissues overlying each intended injection site. A 25-gauge 3.5 inch quincke spinal needle was advanced until the needle tip contacted periosteum at the upper 1/3 of the glenoid fossa medial to the joint space to approximate the position of the sensory branches of the suprascapular nerve. An additional needle was placed in a similar manner at the middle third of the greater trochanter of the humerus, lateral to the humeral head, on the ipsilateral side to approximate the position of the sensory branches of the axillary nerve. After negative aspiration for blood or bodily fluid, 0.25ml of Omnipaque 300 contrast medium was injected at each site confirming appropriate spread of contrast without evidence of intravascular or intra-articular placement. After repeat negative a spiration, 0.5 ml of 0.5% PF Bupivacaine was injected at each site to block the respective nerves. Needle was removed completely intact without difficulty. Patient was then transitioned to the supine position. Site was prepared and draped sterilely as above. The glenohumeral joint was visualized in the AP orientation using slight cephalad tilt and contralateral oblique angulation to optimize visualization of the glenohumeral joint space and coracoid process. In a similar manner as above, two needles were placed to periosteum, one at the superior third of the glenoid fossa medial to the joint capsule to approximate the sensory branches of the superior subscapularis nerve and one at the middle third or neck of the coracoid process to approximate the sensory branches of the lateral pectoral nerve. Once placement was confirmed, each anterior nerve was blocked in a similar manner as above. Images were saved and documented in the patient chart. Patient's skin was cleansed and sterile bandage applied. The patient tolerated the procedure well. The patient was transported to the recovery area in stable condition where they were observed for an appropriate amount of time prior to discharge, without evidence of complication. Patient was instructed on the appropriate completion of a pain diary over the next 6-12 hours. The patient was instructed to avoid excessive activity for the next 48 hours, including heavy lifting, pushing, pulling, or carrying over 5 lbs, or any overhead work with gradual return to normal activity as tolerated. Showers only for 48 hours. Apply a cool pack using skin protection principles intermittently for 48 hours as needed. They were instructed not to drive or operate heavy machinery for 24 hours. They are to monitor for severe headaches, fevers, chills, night sweats, erythema/swelling at the site or any other signs of infection, bleeding/bruising, bowel, or bladder changes as well as new pain, weakness or numbness in the upper or lower extremity. Should they notice these changes, they are instructed to call our office immediately or report directly to the nearest Emergency Department if no answer or if after posted office hours. COMPLICATIONS: None. COMMENTS: None. CONTRAST WASTED: 29 mL Omnipaque 300. Complications No immediate complications Condition Stable Disposition Same day [facility] Billing Surgery - Charge Forward: Surgery Billing
[2025-09-17 10:33] VITALS: BP 139/63; PULSE 63; RESP 19; O2SAT 91
[2025-09-17 10:36] VITALS: BP 131/63; PULSE 66; RESP 19; O2SAT 91
[2025-09-17] MEDS: BUPivacaine HCL 0.5% 10 ML AMP 5 ML INFILTRATE (10:36)
[2025-09-17] MEDS: LIDOCAINE 1% PF INJ 5 ML VIAL INFILTRATE (10:37)
[2025-09-17 10:42] VITALS: BP 138/66; PULSE 67; RESP 15; O2SAT 92
[2025-09-17 10:51] VITALS: BP 151/82; PULSE 60; RESP 16; O2SAT 98
== END 2025-09-17 10:58 | disposition home or self-care (01) ==
PROVIDERS: PCP Family Medicine; Visit Provider Anesthesiology Pain Medicine
PROC: (CPT 64417; principal; 2025-09-17 10:10)
DX: M19.011 Primary osteoarthritis, right shoulder (principal); M25.511 Pain in right shoulder; G89.29 Other chronic pain
CPT/HCPCS: 64417; 64418 ×2; 64450; 99199

== ENCOUNTER 2025-10-09 10:57 | Day surgery (SDC) | payer MEDICARE, SELFPAY ==
[2025-10-08 07:53] VITALS: BMI 31.1
--- NOTE | ~2025-10-09 | XR_ITS ---
EXAM/PROCEDURE: XR fluoroscopy no charge HISTORY: DIAG/PROG RIGHT SHOULDER NERVE BLK COMPARISON: None available. Fluoroscopy time: 123.1 seconds Dose: 6.65 mgy IMPRESSION: Fluoroscopic guidance for pain management. No radiologist present for this procedure. See procedure/operative notes for complete evaluation. Reviewed, dictated and finalized at location A. ER PEELER IMPRESSION: Fluoroscopic guidance for pain management. No radiologist present for this proc edure. See procedure/operative notes for complete evaluation.
--- NOTE | 2025-10-09 13:11 | WPDHPUPDATE1 ---
History and Physical Update Update Date/Time: 10/09/25 13:11 History and Physical has been reviewed, including an updated exam of the patient. There are NO changes in the patient's condition. Risks, benefits, and alternatives have been discussed and questions answered. Patient agrees to proceed with procedure.
--- NOTE | 2025-10-09 13:11 | W.PM.PROC2 ---
Procedure Note - Detailed Date of Procedure 10/09/25 Pre-op Diagnosis RT. Shoulder Pain and Primary Osteoarthritis Post-op Diagnosis Same Procedure Performed Diagnostic and Prognostic Blockade of the right Suprascapular, Axillary, Lateral Pectoral and Superior Subscapularis Peripheral Sensory Nerves under Fluoroscopic Guidance (4 nerves blocked). Surgeon Olivier Vallejo MD Anesthesia Local Description of Procedure INFORMED CONSENT: Risks, benefits and alternatives to the procedure were discussed in detail with the patient who expressed explicit understanding and consent to proceed. Patient was informed verbally and in written form regarding the risks associated with the procedure including the low risk of serious local or systemic infection with need for additional surgical intervention, bleeding/bruising, allergic reaction, side-effects or toxicity from injectable medications, nerve injury, paralysis/weakness, procedural site pain or discomfort, worsening pain and/or mobility, failure to treat pain, disfigurement, seizure, arrhythmia, coma and/or . The patient expressed explicit understanding and consent to proceed. All materials required for the procedure were available prior to procedure start. Site and side were marked prior to procedure and verbally confirmed with the patient. PROCEDURE IN DETAIL: The patient was brought to the procedural suite and placed in the left lateral decubitus position with the right arm in the neutral, adducted position. Patient was made comfortable with use of pillows under the head and in between the knees. Skin overlying the posterior, medial and lateral surface of the shoulder joint on the right side was prepared broadly with ChloraPrep applicator and draped in a sterile manner. Aseptic technique was utilized throughout. The shoulder joint of interest was visualized in the relative AP view with slight caudal tilt and ipsilateral oblique angulation to optimize view of the glenohumeral joint. Local anesthesia was established by infiltration with approximately 3 mL of 2% lidocaine via a 1-1/2 inch 27-gauge needle at the skin and soft tissues overlying each intended injection site. A 25-gauge 3.5 inch quincke spinal needle was advanced until the needle tip contacted periosteum at the upper 1/3 of the glenoid fossa medial to the joint space to approximate the position of the sensory branches of the suprascapular nerve. An additional needle was placed in a similar manner at the middle third of the greater trochanter of the humerus, lateral to the humeral head, on the ipsilateral side to approximate the position of the sensory branches of the axillary nerve. After negative aspiration for blood or bodily fluid, 0.25ml of Omnipaque 300 contrast medium was injected at each site confirming appropriate spread of contrast without evidence of intravascular or intra-articular placement. After repeat negative aspiration, 0.5 ml of 2.0% PF lidocaine was injected at each site to block the respective nerves. Needle was removed completely intact without difficulty. Attention was then turned to the anterior shoulder. The glenohumeral joint was visualized in the AP orientation using slight cephalad tilt and contralateral oblique angulation to optimize visualization of the glenohumeral joint space and coracoid process. In a similar manner as above, two needles were placed to periosteum, one at the superior third of the glenoid fossa medial to the joint capsule to approximate the sensory branches of the superior subscapularis nerve and one at the middle third or neck of the coracoid process to approximate the sensory branches of the lateral pectoral nerve. Once placement was confirmed, each anterior nerve was blocked in a similar manner as above. Images were saved and documented in the patient chart. Patient's skin was cleansed and sterile bandage applied. The patient tolerated the procedure well. The patient was transported to the recovery area in stable condition where they were observed for an appropriate amount of time prior to discharge, without evidence of complication. Patient was instructed on the appropriate completion of a pain diary over the next 6-12 hours. The patient was instructed to avoid excessive activity for the next 48 hours, including heavy lifting, pushing, pulling, or carrying over 5 lbs, or any overhead work with gradual return to normal activity as tolerated. Showers only for 48 hours. Apply a cool pack using skin protection principles intermittently for 48 hours as needed. They were instructed not to drive or operate heavy machinery for 24 hours. They are to monitor for severe headaches, fevers, chills, night sweats, erythema/swelling at the site or any other signs of infection, bleeding/bruising, bowel, or bladder changes as well as new pain, weakness or numbness in the upper or lower extremity. Should they notice these changes, they are instructed to call our office immediately or report directly to the nearest Emergency Department if no answer or if after posted office hours. COMPLICATIONS: None. COMMENTS: None. CONTRAST WASTED: 29 mL Omnipaque 300. Complications No immediate complications Condition Stable Disposition Same day [facility] Billing Surgery - Charge Forward: Surgery Billing
[2025-10-09 13:21] VITALS: BP 159/98; PULSE 54; RESP 18; TEMP 36.4; O2SAT 100; BMI 31.7
[2025-10-09 13:39] VITALS: BP 149/70; PULSE 62; RESP 16; O2SAT 95
[2025-10-09] MEDS: LIDOCAINE 2% PF LOCAL INJ 5 ML VIAL INFILTRATE (13:43)
[2025-10-09] MEDS: LIDOCAINE 1% PF INJ 5 ML VIAL INFILTRATE (13:43)
[2025-10-09 13:48] VITALS: BP 157/58; PULSE 63; RESP 15; O2SAT 95
[2025-10-09 13:52] VITALS: BP 145/67; PULSE 64; RESP 12; O2SAT 96
[2025-10-09 14:01] VITALS: BP 176/85; PULSE 64; RESP 18; O2SAT 100
== END 2025-10-09 14:13 | disposition home or self-care (01) ==
PROVIDERS: PCP Family Medicine; Visit Provider Anesthesiology Pain Medicine
PROC: (CPT 64418; principal; 2025-10-09 12:10)
DX: M25.511 Pain in right shoulder (principal); M19.011 Primary osteoarthritis, right shoulder
CPT/HCPCS: 64418; 64417; 64450; 64999; 99199

== ENCOUNTER 2025-10-30 08:45 | Day surgery (SDC) | payer MEDICARE, SELFPAY ==
--- NOTE | ~2025-10-30 | XR_ITS ---
EXAM/PROCEDURE: XR fluoroscopy no charge HISTORY: WATER COOLED THERMAL RF ABLATION RIGHT SHOULDER COMPARISON: None available. TECHNIQUE: Fluoroscopic spot images for fluoroscopic guided procedure. Fluoroscopy time: 221.3 seconds Dose: 23.43 mGy IMPRESSION: Fluoroscopic guided imaging. No radiologist present. See also procedure/operative notes for complete evaluation. Reviewed, dictated and finalized at location A. [facility] OPERATOR IMPRESSION: Fluoroscopic guided imaging. No radiologist present. See also proce dure/operative notes for complete evaluation.
[2025-10-30 09:54] VITALS: BP 153/91; PULSE 68; RESP 16; TEMP 36.6; O2SAT 98
[2025-10-30] MEDS: LACTATED RINGERS 1,000 ML 30 ML IV CONT (09:57)
--- NOTE | 2025-10-30 10:02 | WPDANESEPPF ---
Anes - Initial Pre Proc Eval Procedure: Operation Date: 10/30/25 10:35 Proposed Procedures p Water Cooled Thermal Radiofrequency Ablation Right Suprascapular, Axillary, Lateral Pectoral and Subscapular Nerves Addressing Right Shoulder Joint under Fluoroscopic Guidance with Contrast Control - Olivier Vallejo MD Date/Time: 10/30/25 10:02 Surgeon: Olivier Vallejo MD Pre Op Diagnosis: RT Shoulder Pain and Osteoarthritis Patient Data Age: 80 Gender: M Height: 1.73 m Weight: 95.3 kg Last Vital Signs Temp 36.6 C 10/30/25 09:54 Pulse 68 10/30/25 09:54 Resp 16 10/30/25 09:54 BP 153/91 H 10/30/25 09:54 Pulse Ox 98 10/30/25 09:54 O2 Del Method Room Air 10/30/25 09:54 Allergies Allergy/AdvReac Type Severity Reaction Status Date / Time No Known Allergies Allergy Verified 10/30/25 09:52 Home Medications ?Medication ?Instructions ?Recorded ?Confirmed ?Type levothyroxine 112 mcg tablet 112 mcg PO DAILY #90 tabs 11/01/19 10/30/25 Rx hydrochlorothiazide 25 mg tablet 25 mg PO DAILY 10/25/23 10/30/25 History losartan 50 mg tablet 50 mg PO DAILY 10/25/23 10/30/25 History metoprolol tartrate 25 mg tablet 25 mg PO DAILY 10/25/23 10/30/25 History misoprostol 200 mcg tablet 200 mcg PO TID 10/25/23 10/30/25 History simvastatin 40 mg tablet 40 mg PO DAILY 10/25/23 10/30/25 History hydrocodone 5 mg-acetaminophen 325 1 tablet PO Q6H PRN pain 05/08/25 10/30/25 History mg tablet dorzolamide 22.3 mg-timolol 6.8 1 drp LEFT EYE BID 08/30/25 10/30/25 History mg/mL eye drops latanoprost 0.005 % eye drops 1 drp LEFT EYE QPM 08/30/25 10/30/25 History meloxicam 15 mg tablet 15 mg PO DAILY #30 tabs 10/17/25 10/30/25 Rx Patient hx anesthesia problems: none Family hx anesthesia problems: none Results Review: All pre-operative results and documents have been reviewed as part of the pre-operative evaluation. PMFSH Past Medical History Medical History Prostate cancer Surgical History Surgical History History of knee replacement right History of right hip replacement Family History Family History Father Carcinoma of colon Social History Social History Smoking status: Former smoker Tobacco type: cigarettes Second hand tobacco smoke exposure: Yes Smoking end date: 11/22/80 Alcohol intake: current Substance use: never Substance use type: does not use Lack of Transportation: No Lack of Food: Sometimes True Current Housing: I Have Housing Concerned About Future Housing: No Difficulty Paying Gas/Electric Bills: No Difficulty Paying for Meds: No Currently Unemployed: No Difficulty w/ Childcare or Family Care: No Living arrangements: alone Spiritual care concerns: No Anes - Eval Final PreProcedure Day of Procedure 10/30/25 10:02 Patient weight: obese Heart: regular rate and rhythm Lungs: clear to auscultation Airway: Mallampati scale class III Neurological: alert and oriented Last oral intake: >/= 8 hours ASA classification: III Anesthetic plan: proceed Anesthesia type and monitoring: monitored anesthesia care Results Review: All pre-operative results and documents have been reviewed as part of the pre-operative evaluation. Informed Consent: The patient's anesthetic plan and its attendant risks and benefits were discussed with the patient/family/POA. Questions were solicited and answers provided to the satisfaction of the patient/family/POA.
--- NOTE | 2025-10-30 10:26 | P.OP_ITS ---
Procedure Note - Detailed Date of Procedure 10/30/25 Pre-op Diagnosis RT Shoulder Pain and Osteoarthritis Post-op Diagnosis Same Procedure Performed Water-Cooled Thermal RF Ablation of the right Suprascapular, Axillary, Lateral Pectoral and Superior Subscapularis Peripheral Sensory Nerves under Fluoroscopic Guidance (4 nerves ablated). Surgeon Olivier Vallejo MD Anesthesia Other (IV Moderate Sedation with Local Anesthetic infiltration in the prone and supine positions.) Description of Procedure INFORMED CONSENT: Risks, benefits and alternatives to the procedure were discussed in detail with the patient who expressed explicit understanding and consent to proceed. Patient was informed verbally and in written form regarding the risks associated with the procedure including the low risk of serious local or systemic infection with need for additional surgical intervention, bleeding/bruising, skin burn/scarring, allergic reaction, side-effects or toxicity from injectable medications, nerve injury, paralysis/weakness, procedural site pain or discomfort, worsening pain and/or mobility, failure to treat pain, disfigurement, seizure, arrhythmia, coma and/or . The patient expressed explicit understanding and consent to proceed. All materials required for the procedure were available prior to procedure start. Site and side were marked prior to procedure and verbally confirmed with the patient. PROCEDURE IN DETAIL: The patient was brought to the procedural suite and placed in the prone position with the arm in the neutral, adducted position. Patient was made comfortable with use of pillows under the head, chest, hips and ankles. Skin overlying the posterior, medial and lateral surface of the shoulder joint on the left side was prepared broadly with ChloraPrep applicator and draped in a sterile manner. Aseptic technique was utilized throughout. The shoulder joint of interest was visualized in the AP view with slight caudal tilt and ipsilateral oblique angulation to optimize view of the glenohumeral joint. Local anesthesia was established by infiltration with approximately 5mL of a 1:1 admixture of 2% PF lidocaine and 0.5% PF Bupivacaine via a 1-1/2 inch 27-gauge needle at the skin and soft tissues overlying each intended injection site. A 17-gauge 100 mm PrintToPeer straight water-cooled enhanced-lesioning RF cannula with 10mm active tip was advanced until the needle tip contacted periosteum at the upper 1/3 of the glenoid fossa medial to the joint space to approximate the position of the sensory branches of the suprascapular nerve. An additional needle was placed in a similar manner at the middle third of the greater trochanter of the humerus, lateral to the humeral head, on the ipsilateral side to approximate the position of the sensory branches of the axillary nerve. The appropriately sized water-cooled electrode was inserted into the RF cannula and motor stimulation performed with no subjective or objective evidence of recruited muscle activity with stimulation up to 2.0 volts at a frequency of 2Hz. After negative aspiration, 1.5 ml of 2.0% PF Lidocaine was injected at each site to block the respective nerves. Grounding electrode was confirmed to be in place, in good contact and functioning appropriately. After a 90s pause, lesions were performed sequentially to 60 degrees centigrade at the needle tip for 150s ensuring lack of symptoms in the neck, thorax or extremities throughout. No parasthesias were elicited. Needle was removed completely intact without difficulty after each lesion. Patient was then transitioned to the supine position. Site was prepared and draped sterilely as above. The glenohumeral joint was visualized in the AP orientation using slight cephalad tilt and contralateral oblique angulation to optimize visualization of the glenohumeral joint space and coracoid process. In a similar manner as above, two identical needles were placed to periosteum, one at the superior third of the glenoid fossa medial to the joint capsule to approximate the sensory branches of the superior subscapularis nerve and one at the middle third or neck of the coracoid process to approximate the sensory branches of the lateral pectoral nerve. Once placement was confirmed, the appropriately sized water-cooled electrode was inserted into the RF cannula and motor stimulation performed with no subjective or objective evidence of recruited muscle activity with stimulation up to 2.0 volts at a frequency of 2Hz. After negative aspiration, 1.5 ml of 2.0% PF Lidocaine was injected at each site to block the respective nerves. Grounding electrode was confirmed to be in place, in good contact and functioning appropriately. After a 90s pause, lesions were performed sequentially to 60 degrees centigrade at the needle tip for 150s ensuring lack of symptoms in the neck, thorax or extremities thro ughout. No parasthesias were elicited. Needle was removed completely intact without difficulty after each lesion. Images were saved and documented in the patient chart. Patient's skin was cleansed and sterile bandage applied. The patient tolerated the procedure well. Anesthesia was reversed without incident and the patient was transported to the recovery area in stable condition where they were observed for an appropriate amount of time prior to discharge, without evidence of complication. The patient was instructed to avoid excessive activity for the next 48 hours, including heavy lifting, pushing, pulling, or carrying over 5 lbs, or any overhead work with gradual return to normal activity as tolerated. Showers only for 48 hours. Apply a cool pack using skin protection principles intermittently for 48 hours as needed. They were instructed not to drive or operate heavy machinery for 24 hours. They are to monitor for severe headaches, fevers, chills, night sweats, erythema/swelling at the site or any other signs of infection, bleeding/bruising, bowel, or bladder changes as well as new pain, weakness or numbness in the upper or lower extremity. Should they notice these changes, they are instructed to call our office immediately or report directly to the nearest Emergency Department if no answer or if after posted office hours. COMPLICATIONS: None. COMMENTS: None. Complications No immediate complications Condition Stable Disposition Same day [facility] Billing Surgery - Charge Forward: Surgery Billing
--- NOTE | 2025-10-30 10:26 | WPDHPUPDATE1 ---
History and Physical Update Update Date/Time: 10/30/25 10:26 History and Physical has been reviewed, including an updated exam of the patient. There are NO changes in the patient's condition. Risks, benefits, and alternatives have been discussed and questions answered. Patient agrees to proceed with procedure.
[2025-10-30] MEDS: BUPivacaine HCL 0.5% 10 ML AMP 5 ML INFILTRATE (11:28)
[2025-10-30] MEDS: LIDOCAINE 2% PF LOCAL INJ 5 ML VIAL INFILTRATE (11:29)
[2025-10-30] MEDS: LIDOCAINE 1% PF INJ 5 ML VIAL INFILTRATE (11:30)
[2025-10-30 11:42] VITALS: BP 132/76; PULSE 66; RESP 15; O2SAT 96
[2025-10-30 11:57] VITALS: BP 140/92; PULSE 65; RESP 15; O2SAT 97
[2025-10-30 12:12] VITALS: BP 142/87; PULSE 66; RESP 15; O2SAT 97
[2025-10-30 12:28] VITALS: BP 146/70; PULSE 55; RESP 15; O2SAT 99
== END 2025-10-30 12:34 | disposition home or self-care (01) ==
PROVIDERS: PCP Family Medicine; Visit Provider Anesthesiology Pain Medicine
PROC: (CPT 64640; principal; 2025-10-30 10:35)
DX: M25.511 Pain in right shoulder (principal); M19.011 Primary osteoarthritis, right shoulder
CPT/HCPCS: 64640 ×4; 99199